=== PATIENT | male | born 1930 | race Caucasian/White ===

== ENCOUNTER 2017-04-19 20:11 | Emergency (ER) | payer MEDICARE, OTHER ==
[~2017-04-19] VITALS: Ht 162.6 cm; Wt 60.9 kg
[~2017-04-19 20:11] MED LIST: A/B OTIC AU; ALEVE220 M1 PO; ALLERGY RELF10 M3 PO; ALLERGY10 M1 PO; ALPRAZOLAM0.25 M1 PO; AMLODIPINE10 MG PO; AMLODIPINE5 MG PO; ARICEPT10 MG PO; ARICEPT5 MG PO; ASPIRIN EC81 MG PO; ATENOLOL100 MG OR; ATENOLOL50 MG PO; ATIVAN1 M1 PO; BENADRYL25 M1 PO; CARAFATE1 G1 PO; CLOPIDOGREL75 MG PO; COZAAR100 MG PO; DICYCLOMINE20 MG PO; DONEPEZIL HCL5 MG PO; DONEPEZIL5 MG PO; EQ LAXATIVE25 MG PO; FAMOTIDINE20 M1 PO; FLUOXETINE10 M2 PO; FLUOXETINE20 MG PO; HYZAAR1 TA1 PO; IMDUR30 MG PO; LASIX 20 MG20 MG/TAB PO; LASIX 40 MG TAB40 MG PO; LASIX 40 MG40 MG/TAB PO; LORTAB 5 PO; LOSARTAN POT25 MG PO; MAGNESIUM400 MG PO; MELATONIN5 M3 PO; MICARDIS80 MG OR; MIRAPEX0.5 MG PO; MIRTAZAPINE15 MG PO; NAMENDA10 MG PO; NITROSTAT0.4 MG SL; NORVASC PO; NORVASC5 MG OR; OMEPRAZOLE20 M1 PO; OXYCODONE5 MG PO; PEPCID20 MG PO; PERCOCET1 TAB PO; PLAVIX75 MG PO; POTASSIUM CHLO20 MEQ PO; PREVACID30 M2 PO; PRILOSEC20 MG/CAP PO; SIMVASTATIN40 MG OR; SIMVASTATIN40 MG PO; SPIRONOLACTONE25 MG PO; SYSTANE BALANCE REST OU; SYSTANE ULTR OP; VITAMIN D32000 UNIT PO; WARFARIN5 MG OR; ZOLPIDEM5 M1 PO; ZOLPIDEM5 MG PO; ZYRTEC10 MG PO
[2017-04-19 20:59] LABS: HEMATOCRIT 26.2 % (39.0-50.0); HEMOGLOBIN 8.5 g/dl (14.0-18.0); IMMATURE GRANULOCYTES 0.5 % (0.0-1.0); MEAN CORPUSCULAR HGB 33.7 pG CALC (26.0-32.0); MEAN CORPUSCULAR HGB CONC 32.4 g/L CALC (32.0-36.0); NEUT# 5.22 thou/uL (1.82-7.42); RED BLOOD COUNT 2.52 mill/uL (4.70-6.10); RED CELL DISTRI WIDTH 15.9 % (11.5-15.5)
[2017-04-19 21:08] LABS: URINE BILIRUBIN - DIPSTICK NEGATIVE (NEGATIVE); URINE BLOOD DIPSTICK SMALL (NEGATIVE); URINE CLARITY CLEAR; URINE COLOR YELLOW; URINE GLUCOSE - DIPSTICK NEGATIVE (NEGATIVE); URINE KETONE NEGATIVE (NEGATIVE); URINE LEUK ESTERASE NEGATIVE (Negative); URINE NITRITE - DIPSTICK NEGATIVE (Negative); URINE PROTEIN - DIPSTICK 30 mg/dL (NEG-TRACE); URINE SPECIFIC GRAVITY 1.025; URINE UROBILINOGEN - DIPSTICK 0.2 E.U./dL (0.2)
[2017-04-19 21:14] LABS: ALBUMIN 3.9 g/dL (3.2-5.0); BILIRUBIN, TOTAL 0.4 mg/dL (0.0-1.4); CALCIUM 9.1 mg/dL (8.4-10.2); TOTAL PROTEIN 6.2 g/dL (6.3-8.2)
[2017-04-19 21:16] LABS: CREATININE 6.1 mg/dL (0.7-1.3); POTASSIUM 5.4 mmol/l (3.5-5.1)
[2017-04-19 21:19] LABS: URINE RBC 0-2 RBC/hpf (0-5); URINE WBC 0-2 WBC/hpf (0-5)
[2017-04-19 23:20] VITALS: BP 142/70
== END 2017-04-19 23:18 | disposition short-term general hospital (02) ==
LOC: ED 20:11
PROVIDERS: Emergency Medicine
PROC: 0T9B70Z Drainage of Bladder with Drainage Device, Via Natural or Artificial Opening (ICD-10-PCS; principal; 2017-04-19)
DX: N13.9 Obstructive and reflux uropathy, unspecified (principal); I12.9 Hypertensive chronic kidney disease with stage 1 through stage 4 chronic kidney disease, or unspecified chronic kidney disease; N18.9 Chronic kidney disease, unspecified; R94.31 Abnormal electrocardiogram [ECG] [EKG]; R53.1 Weakness; R06.02 Shortness of breath; M54.5 Low back pain; I25.810 Atherosclerosis of coronary artery bypass graft(s) without angina pectoris; Z95.820 Peripheral vascular angioplasty status with implants and grafts; Z95.1 Presence of aortocoronary bypass graft; Z95.0 Presence of cardiac pacemaker

== ENCOUNTER 2017-06-27 10:03 | Emergency (ER) | payer OTHER, MEDICARE ==
[~2017-06-27] VITALS: Ht 162.6 cm; Wt 51.0 kg
[2017-06-27 16:29] VITALS: BP 118/59
== END 2017-06-27 16:29 | disposition hospice, inpatient (51) | DRG 682 ==
LOC: ED 10:03
DX: I13.11 Hypertensive heart and chronic kidney disease without heart failure, with stage 5 chronic kidney disease, or end stage renal disease (principal); N18.6 End stage renal disease; F03.90 Unspecified dementia, unspecified severity, without behavioral disturbance, psychotic disturbance, mood disturbance, and anxiety; E78.5 Hyperlipidemia, unspecified; F32.9 Major depressive disorder, single episode, unspecified; I25.2 Old myocardial infarction; G47.30 Sleep apnea, unspecified; Z99.2 Dependence on renal dialysis; Z66 Do not resuscitate; Z51.5 Encounter for palliative care